=== PATIENT | female | born 1990 | race Caucasian/White ===

== ENCOUNTER 2017-03-04 09:51 | Emergency (ER) | payer SELFPAY ==
[2017-03-04 10:08] VITALS: BP 129/87
[2017-03-04] MEDS ORDERED: BOOSTRIX IM ONE (11:20)
--- NOTE | 2017-03-04 11:24 | Emergency Department Report ---
ED Extremity Problem HPI - General Chief complaint: Extremity Injury, Upper Stated complaint: INJURY TO ARM Time Seen by Provider: 03/04/17 11:13 Source: patient Mode of arrival: Ambulatory Limitations: No Limitations - History of Present Illness Initial comments: PT c/o L arm pain. PT states she got a tattoo on Sunday. PT states the lower part of her arm is tender and has an ulcer. PT states this is her first tattoo and her TD vaccine is not utd. MD Complaint: extremity pain -: Gradual, days(s) Location: left, upper extremity Severity scale (0 -10): 8 Quality: constant Consistency: constant Improves with: nothing, other (pt using antibacterial soap and skin lotion with alcohol and lactic acid) Worsens with: palpation Associated Symptoms: myalgias. denies: fever - Related Data Previous Rx's Medication Instructions Recorded Last Taken Type Acetaminophen/Codeine [Tylenol #3] 1 tab PO Q6H PRN #12 tab 03/04/17 Unknown Rx Cephalexin [Keflex] 500 mg PO Q6HR #40 capsule 03/04/17 Unknown Rx Fluconazole [Diflucan TAB] 150 mg PO ONCE #2 tablet 03/04/17 Unknown Rx Ibuprofen [Motrin] 600 mg PO Q8H PRN #15 tablet 03/04/17 Unknown Rx Sulfamethoxazole/Trimethoprim 1 tab PO BID #20 tab 03/04/17 Unknown Rx [Bactrim 400-80 mg] Allergies Allergy/AdvReac Type Severity Reaction Status Date / Time No Known Allergies Allergy Unverified 03/04/17 14:07 ED Review of Systems ROS: Stated complaint: INJURY TO ARM Other details as noted in HPI Comment: All other systems reviewed and negative Constitutional: denies: chills, fever Respiratory: denies: cough Gastrointestinal: denies: abdominal pain, nausea, vomiting Genitourinary: discharge (+ vaginal itching. Floweree like yeast infection, tried 1 time dose of OTC yeast medication on , no improvement. ). denies: abnormal menses Musculoskeletal: as per HPI Skin: as per HPI ED Past Medical Hx - Past Medical History Previous Medical History?: No - Surgical History Past Surgical History?: No - Social History Smoking Status: Current Every Day Smoker Substance Use Type: None - Medications Home Medications: Home Medications Medication Instructions Recorded Confirmed Last Taken Type Acetaminophen/Codeine [Tylenol #3] 1 tab PO Q6H PRN #12 tab 03/04/17 Unknown Rx Cephalexin [Keflex] 500 mg PO Q6HR #40 capsule 03/04/17 Unknown Rx Fluconazole [Diflucan TAB] 150 mg PO ONCE #2 tablet 03/04/17 Unknown Rx Ibuprofen [Motrin] 600 mg PO Q8H PRN #15 tablet 03/04/17 Unknown Rx Sulfamethoxazole/Trimethoprim 1 tab PO BID #20 tab 03/04/17 Unknown Rx [Bactrim 400-80 mg] ED Physical Exam - General Limitations: No Limitations General appearance: alert, in no apparent distress - Head Head exam: Present: atraumatic, normocephalic, normal inspection - Eye Eye exam: Present: normal appearance, PERRL, EOMI. Absent: conjunctival injection, nystagmus - ENT ENT exam: Present: normal exam, mucous membranes moist, normal external ear exam - Neck Neck exam: Present: normal inspection, full ROM. Absent: tenderness - Respiratory Respiratory exam: Present: normal lung sounds bilaterally. Absent: respiratory distress, chest wall tenderness, accessory muscle use - Cardiovascular Cardiovascular Exam: Present: regular rate, normal rhythm, normal heart sounds - GI/Abdominal GI/Abdominal exam: Present: soft, normal bowel sounds. 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 Absent: vaginal bleeding, foreign body Bi-manual exam: Present: normal bi-manual exam. Absent: cervical motion tendernes, adnexal tenderness, uterine enlargement, uterine tenderness - Extremities Exam Extremities exam: Present: normal inspection, full ROM. Absent: pedal edema, joint swelling - Back Exam Back exam: Present: normal inspection, full ROM. Absent: tenderness, CVA tenderness (R), CVA tenderness (L) - Neurological Exam Neurological exam: Present: alert, oriented X3 - Psychiatric Psychiatric exam: Present: normal affect, normal mood - Skin Skin exam: Present: warm, dry, other (tattoo to LUE with surrounding ertythema to lower tattoo. skin ulcerated. ). Absent: intact, normal color ED Course Vital Signs 03/04/17 10:04 Temperature 98.5 F Pulse Rate 78 Respiratory 18 Rate Blood Pressure 129/87 O2 Sat by Pulse 100 Oximetry - Reevaluation(s) Reevaluation #1: 03/04/17 PT aware of labs and plan of care. PT has no questions at this time. - Pulse Oximetry Interpretation Digit-Finger Initial Pulse Oximetry Readin Actions Taken: none ED Medical Decision Making - Lab Data Lab Results 03/04/17 Range/Units 12:39 Urine Color Yellow (Yellow) Urine Turbidity Clear (Clear) Urine pH 6.0 (5.0-7.0) Ur Specific [place] 1.011 (1.003-1.030) Urine Protein <15 mg/dl (Negative) mg/dL Urine Glucose (UA) Neg (Negative) mg/dL Urine Ketones Neg (Negative) mg/dL Urine Blood Sm (Negative) Urine Nitrite Neg (Negative) Urine Bilirubin Neg (Negative) Urine Urobilinogen < 2.0 (<2.0) mg/dL Ur Leukocyte Esterase Neg (Negative) Urine WBC (Auto) < 1.0 (0.0-6.0) /HPF Urine RBC (Auto) 1.0 (0.0-6.0) /HPF U Epithel Cells (Auto) < 1.0 (0-13.0) /HPF Urine HCG, Qual Negative (Negative) wet prep wnl - Differential Diagnosis cellulitis, abscess, uti, vaginitis Critical Care Time: No Critical care attestation.: If time is entered above; I have spent that time in minutes in the direct care of this critically ill patient, excluding procedure time. ED Disposition Clinical Impression: Cellulitis of arm, left Vaginitis Qualifiers: Chronicity: acute Qualified Code(s): N76.0 - Acute vaginitis Disposition: DC-01 TO HOME OR SELFCARE Is pt being admited?: No Does the pt Need Aspirin: No Condition: Stable Instructions: Cellulitis (ED), Vaginitis (ED) Additional Instructions: Stop using the lotion you have been using. Only use plain Aquaphor wash tattoo with mild soap twice a day Take antibiotics as directed Return in 2 days for recheck Return sooner if you have fevers, chills, nausea, vomiting, increase in redness or swelling No driving or alcohol after taking Tylenol #3 Prescriptions: Acetaminophen/Codeine [Tylenol #3] 1 tab PO Q6H PRN #12 tab PRN Reason: Pain , Severe (7-10) Cephalexin [Keflex] 500 mg PO Q6HR #40 capsule Fluconazole [Diflucan TAB] 150 mg PO ONCE #2 tablet Ibuprofen [Motrin] 600 mg PO Q8H PRN #15 tablet PRN Reason: Pain Sulfamethoxazole/Trimethoprim [Bactrim 400-80 mg] 1 tab PO BID #20 tab Referrals: PRIMARY CARE, [Primary Care Provider] - 3-5 Days Forms: Work/School Release Form(ED) Time of Disposition: 13:54
[2017-03-04 12:52] LABS: Bilirubin,Urine NEG (Negative); Blood,Urine SM (Negative); Ketones,Urine NEG (Negative); Leukocyte Esterase,Urine NEG (Negative); Nitrite,Urine NEG (Negative); Protein,Urine <15 mg/dL mg/dL (Negative); Urobilinogen,Urine < 2.0 mg/dL (<2.0); WBC,Urine < 1.0 /HPF (0.0-6.0)
[2017-03-04] MEDS ORDERED: NORCO 5/325 PO ONE (13:57)
[2017-03-04] MEDS ORDERED: KEFLEX PO ONE (13:57)
[2017-03-04] MEDS ORDERED: ZOFRAN ODT PO ONE (13:57)
[2017-03-04] MEDS ORDERED: BACTRIM DS PO ONE (13:57)
== END 2017-03-04 14:29 | disposition home or self-care (01) ==
LOC: ED 09:51
DX: L03.114 Cellulitis of left upper limb (principal); N76.0 Acute vaginitis; F17.210 Nicotine dependence, cigarettes, uncomplicated
CPT/HCPCS: 81001; 81025; 87210; 87591; 90715; 99283; Q0162